=== PATIENT | female | born 1960 | race Caucasian/White ===

== ENCOUNTER → 2025-01-01 14:43 | Outpatient (REF) | payer BC, SELFPAY | LOC: DHSLP 14:43 | PROVIDERS: ATTENDING PHYSICIAN Internal Medicine Critical Care Medicine; FAMILY PHYSICIAN Internal Medicine | DX: G47.33 Obstructive sleep apnea (adult) (pediatric) (principal) | CPT/HCPCS: 95800 ==

== ENCOUNTER → 2025-02-25 13:47 | Outpatient (REF) | payer BC, SELFPAY | LOC: DHSLP 13:47 | PROVIDERS: ATTENDING PHYSICIAN Internal Medicine Critical Care Medicine; FAMILY PHYSICIAN Internal Medicine | DX: G47.33 Obstructive sleep apnea (adult) (pediatric) (principal); G47.61 Periodic limb movement disorder | CPT/HCPCS: 95811 ==